=== PATIENT | female | born 1980 | race African-American/Black ===

== ENCOUNTER 2017-05-10 21:34 | Emergency (ER) | payer MEDICAID ==
[~2017-05-10] VITALS: Ht 170.2 cm; Wt 90.9 kg
[2017-05-10] MEDS ORDERED: HYDROCODONE/ACETAMINOPHEN 5-325 MG TABLET PO ONE (22:30)
[2017-05-10] MEDS ORDERED: PROPARACAINE HCL 0.5% 15 ML OPHTHALMIC SOLUTION OU ONE (22:30)
[2017-05-11 00:17] VITALS: BP 137/80
[2017-05-11] MEDS ORDERED: ERYTHROMYCIN 0.5% 3.5 GM TUBE OPHTHALMIC OINTMENT OS ONE (00:30)
== END 2017-05-11 00:35 | disposition home or self-care (01) ==
LOC: EMS 21:35
DX: H10.89 Other conjunctivitis (principal)
CPT/HCPCS: 99284